=== PATIENT | male | born 1965 | race Caucasian/White ===

== ENCOUNTER 2017-11-26 06:27 | Inpatient (IN) | payer OTHER ==
[2017-11-26] MEDS: ACETAMINOPHEN 325 MG TAB PO (06:55)
[2017-11-26] MEDS ORDERED: LEVOFLOXACIN 750MG/D5W (PMX) 150 ML IVPB (07:00)
[2017-11-26] MEDS ORDERED: NACL 0.9% 3 ML SYG IV (07:00)
[2017-11-26] MEDS: INSULIN ASPART [NOVOLOG] 3 ML PEN SC ×4 (07:55→21:00)
[2017-11-26 08:29] LABS: WHITE BLOOD COUNT 15.8 10^3/ul (4.8-10.8)
[2017-11-26 08:29] LABS: HEMATOCRIT 35.6 % (42.0-52.0); HEMOGLOBIN 11.9 g/dl (14.0-18.0); MEAN CORPUSCULAR HEMOGLOBIN 30.3 pg (29.0-33.0); MEAN CORPUSCULAR HGB CONC 33.4 g/dl (32.0-37.0); MEAN CORPUSCULAR VOLUME 90.6 fl (82.0-101.0); MEAN PLATELET VOLUME 8.9 fl (7.4-10.4); PLATELET COUNT 228 10^3/UL (140-415); POSITIVE DIFF @See below; RED BLOOD COUNT 3.93 10^6/ul (4.70-6.10); RED CELL DISTRIBUTION WIDTH 13.9 % (11.5-14.5)
[2017-11-26 08:51] LABS: ADD MAN DIFF? YES
[2017-11-26 08:52] LABS: ALANINE AMINOTRANSFERASE 31 IU/L (13-69); ALBUMIN 3.5 g/dl (3.3-4.9); ALBUMIN/GLOBULIN RATIO 1.06; ALKALINE PHOSPHATASE 90 IU/L (42-121); ANION GAP 14 (8-16); ASPARTATE AMINO TRANSFERASE 23 IU/L (15-46); BILIRUBIN,INDIRECT 0.4 mg/dl (0-1.1); BILIRUBIN,TOTAL 0.4 mg/dl (0.2-1.3); BLOOD UREA NITROGEN 33 mg/dl (7-20); CALCIUM 8.9 mg/dl (8.4-10.2); CARBON DIOXIDE 24 mmol/L (21-31); CHLORIDE 105 mmol/L (97-110); CHOL/HDL RATIO 2.2 RATIO; CHOLESTEROL 103 mg/dl (100-200); GLUCOSE 156 mg/dl (70-220); HDL CHOLESTEROL 46 mg/dl (28-71); LDL CHOLESTEROL,CALCULATED 38 mg/dl; MAGNESIUM 1.3 mg/dl (1.7-2.5); POTASSIUM 4.4 mmol/L (3.5-5.1); SODIUM 139 mmol/L (135-144); TOTAL PROTEIN 6.8 g/dl (6.1-8.1); TRIGLYCERIDES 93 mg/dl (0-149)
[2017-11-26 09:02] LABS: LACTIC ACID 2.5 mmol/L (0.5-2.0)
[2017-11-26] MEDS: PANTOPRAZOLE (EC) 40 MG TAB PO (09:15)
[2017-11-26] MEDS: ASPIRIN (EC) 81 MG TAB PO (09:15)
[2017-11-26] MEDS: LEVOFLOXACIN 750MG/D5W (PMX) 150 ML IVPB (09:15)
[2017-11-26] MEDS: SOD CHLORIDE 0.9% 1,000 ML IV ×3 (09:15→23:02)
[2017-11-26 09:20] LABS: THYROID STIMULATING HORMONE 0.837 MIU/L (0.465-4.680)
[2017-11-26 09:26] LABS: ANISOCYTOSIS 1+ (0-0); BAND NEUTROPHILS % (M) 19 % (0-4); LYMPHOCYTES #M 1.1 10^3/ul (0.8-2.9); LYMPHOCYTES % (M) 7 % (15-51); MICROCYTOSIS 1+ (0-0); MONOCYTE #M 0.1 10^3/ul (0.3-0.9); MONOCYTES % (M) 1 % (0-11); PLATELET ESTIMATE NORMAL; SEGMENTED NEUTROPHILS (M) % 73 % (39-77)
[2017-11-26 09:35] LABS: HEMOGLOBIN A1C 7.5 % (0-5.9)
[2017-11-26 10:25] LABS: LACTIC ACID 1.4 mmol/L (0.5-2.0)
[2017-11-26] MEDS ORDERED: GLUCAGON 1 MG INJ IM (12:00)
[2017-11-26] MEDS ORDERED: GLUCOSE GEL 15 GRAM TUBE BUCCAL (12:00)
[2017-11-26] MEDS ORDERED: DEXTROSE 50% 50 ML SYRINGE IV (12:00)
[2017-11-26] MEDS ORDERED: GLUCOSE GEL 15 GRAM TUBE PO ×2 (12:00)
[2017-11-26] MEDS: PIPER-TAZO 2.25 GM (PMX) 50 ML IVPB ×3 (12:10→23:02)
[2017-11-26] MEDS: GEMFIBROZIL 600 MG TAB PO ×2 (12:10→20:50)
[2017-11-26 12:46] LABS: ADD UMIC YES; UR ASCORBIC ACID NEGATIVE (NEGATIVE); UR BACTERIA FEW /HPF (NONE SEEN); UR BILIRUBIN (Dip) NEGATIVE (NEGATIVE); UR BLOOD (Dip) 2+ mg/dL (NEGATIVE); UR CLARITY CLOUDY (CLEAR); UR COLOR YELLOW (YELLOW); UR GLUCOSE (Dip) NEGATIVE (NEGATIVE); UR KETONES (Dip) NEGATIVE (NEGATIVE); UR LEUKOCYTE ESTERASE (Dip) 3+ Leu/ul (NEGATIVE); UR NITRITE (Dip) NEGATIVE (NEGATIVE); UR NONSQUAMOUS EPITHELIAL CELL 1 /HPF (NONE SEEN); UR RBC 55 /HPF (0-5); UR SPECIFIC GRAVITY (Dip) 1.018 (1.003-1.030); UR TOTAL PROTEIN (Dip) 3+ mg/dl (NEGATIVE); UR UROBILINOGEN (Dip) NEGATIVE (NEGATIVE); UR WBC > 182 /HPF (0-5)
[2017-11-26] MEDS: LINAGLIPTIN 5 MG TABLET PO (12:59)
[2017-11-26] MEDS: HYDROCODONE/APAP (5/325) TAB PO (14:18)
[2017-11-26] MEDS ORDERED: POLYETHYLENE GLYCOL 17 GM PACKET PO (17:30)
[2017-11-26] MEDS ORDERED: DOCUSATE SODIUM 100 MG CAP PO (17:30)
[2017-11-26] MEDS: ONDANSETRON 4 MG INJ IV (18:02)
[2017-11-26] MEDS: POLYETHYLENE GLYCOL 17 GM PACKET PO (18:02)
[2017-11-26] MEDS: DOCUSATE SODIUM 100 MG CAP PO ×2 (18:02→20:50)
[2017-11-26] MEDS: METOPROLOL 25 MG TAB PO (20:50)
[2017-11-26] MEDS: ATORVASTATIN 10 MG TAB PO (20:51)
[2017-11-26] MEDS: INSULIN GLARGINE [LANtus] 3 ML PEN SC (21:09)
[2017-11-26 23:44] LABS: ADD UMIC YES; UR ASCORBIC ACID NEGATIVE (NEGATIVE); UR BILIRUBIN (Dip) NEGATIVE (NEGATIVE); UR BLOOD (Dip) 2+ mg/dL (NEGATIVE); UR CLARITY SLIGHTLY CLOUDY (CLEAR); UR COLOR YELLOW (YELLOW); UR GLUCOSE (Dip) NEGATIVE (NEGATIVE); UR KETONES (Dip) NEGATIVE (NEGATIVE); UR LEUKOCYTE ESTERASE (Dip) TRACE Leu/ul (NEGATIVE); UR MUCUS FEW /HPF (NONE SEEN); UR NITRITE (Dip) NEGATIVE (NEGATIVE); UR RBC 52 /HPF (0-5); UR SPECIFIC GRAVITY (Dip) 1.019 (1.003-1.030); UR SQUAMOUS EPITHELIAL CELL FEW /HPF (FEW); UR TOTAL PROTEIN (Dip) 3+ mg/dl (NEGATIVE); UR UROBILINOGEN (Dip) 1+ mg/dL (NEGATIVE); UR WBC 21 /HPF (0-5)
[2017-11-27] MEDS: HYDROCODONE/APAP (5/325) TAB PO (01:33)
[2017-11-27] MEDS: ACCU-CHEK XX (02:00)
[2017-11-27] MEDS: PIPER-TAZO 2.25 GM (PMX) 50 ML IVPB ×3 (05:06→21:20)
[2017-11-27] MEDS: PANTOPRAZOLE (EC) 40 MG TAB PO (05:07)
[2017-11-27] MEDS: morphine 2 MG INJ IV ×3 (05:14→22:44)
[2017-11-27] MEDS: SOD CHLORIDE 0.9% 1,000 ML IV ×3 (07:11→23:11)
[2017-11-27] MEDS: ONDANSETRON 4 MG INJ IV ×3 (08:17→19:58)
[2017-11-27] MEDS: LINAGLIPTIN 5 MG TABLET PO (08:17)
[2017-11-27] MEDS: ASPIRIN (EC) 81 MG TAB PO (08:17)
[2017-11-27] MEDS: GEMFIBROZIL 600 MG TAB PO ×2 (08:17→21:21)
[2017-11-27] MEDS: METOPROLOL 25 MG TAB PO ×2 (08:17→21:21)
[2017-11-27] MEDS: DOCUSATE SODIUM 100 MG CAP PO ×2 (08:17→21:21)
[2017-11-27] MEDS: POLYETHYLENE GLYCOL 17 GM PACKET PO (08:19)
[2017-11-27 08:45] LABS: ADD MAN DIFF? NO
[2017-11-27 08:47] LABS: WHITE BLOOD COUNT 17.5 10^3/ul (4.8-10.8)
[2017-11-27 08:47] LABS: ABNORMAL IP MESSAGE 1; BASOPHIL # 0.1 10^3/ul (0.0-0.1); BASOPHILS % 0.3 % (0.0-2.0); EOSINOPHILS # 0.1 10^3/ul (0.0-0.5); EOSINOPHILS % 0.6 % (0.0-7.0); HEMATOCRIT 31.8 % (42.0-52.0); HEMOGLOBIN 10.6 g/dl (14.0-18.0); LYMPHOCYTES # 1.1 10^3/ul (0.8-2.9); MEAN CORPUSCULAR HEMOGLOBIN 30.3 pg (29.0-33.0); MEAN CORPUSCULAR HGB CONC 33.3 g/dl (32.0-37.0); MEAN CORPUSCULAR VOLUME 90.9 fl (82.0-101.0); MEAN PLATELET VOLUME 9.5 fl (7.4-10.4); MONOCYTE # 0.9 10^3/ul (0.3-0.9); MONOCYTES % 5.1 % (0.0-11.0); NEUTROPHIL # 14.2 10^3/ul (1.6-7.5); NEUTROPHILS % 81.2 % (39.0-77.0); PLATELET COUNT 222 10^3/UL (140-415); POSITIVE DIFF @See below; RED CELL DISTRIBUTION WIDTH 13.8 % (11.5-14.5)
[2017-11-27] MEDS: INSULIN ASPART [NOVOLOG] 3 ML PEN SC ×4 (08:56→21:00)
[2017-11-27 09:13] LABS: ANION GAP 14 (8-16); BLOOD UREA NITROGEN 32 mg/dl (7-20); CALCIUM 8.2 mg/dl (8.4-10.2); CARBON DIOXIDE 24 mmol/L (21-31); CHLORIDE 105 mmol/L (97-110); CREATININE 1.47 mg/dl (0.61-1.24); GLUCOSE 139 mg/dl (70-220); MAGNESIUM 1.6 mg/dl (1.7-2.5); POTASSIUM 4.6 mmol/L (3.5-5.1); SODIUM 138 mmol/L (135-144)
[2017-11-27 09:19] LABS: INR 1.26; PT RATIO 1.3
[2017-11-27 09:20] LABS: PARTIAL THROMBOPLASTIN TIME 46.4 Sec (25.0-35.0)
[2017-11-27] MEDS: BISACODYL (EC) 5 MG TAB PO (15:26)
[2017-11-27] MEDS: MAGNESIUM SULFATE 2 GM/50 ML 50 ML IVPB (15:47)
[2017-11-27] MEDS: TAMSULOSIN (SR) 0.4 MG CAP PO (21:20)
[2017-11-27] MEDS: ATORVASTATIN 10 MG TAB PO (21:21)
[2017-11-27] MEDS: INSULIN GLARGINE [LANtus] 3 ML PEN SC (21:25)
[2017-11-28] MEDS: ACCU-CHEK XX (02:00)
[2017-11-28] MEDS: morphine 2 MG INJ IV ×3 (05:00→19:16)
[2017-11-28] MEDS: PIPER-TAZO 2.25 GM (PMX) 50 ML IVPB ×3 (05:00→21:04)
[2017-11-28] MEDS: PANTOPRAZOLE (EC) 40 MG TAB PO (05:00)
[2017-11-28 07:05] LABS: ADD MAN DIFF? NO
[2017-11-28 07:11] LABS: WHITE BLOOD COUNT 10.9 10^3/ul (4.8-10.8)
[2017-11-28 07:11] LABS: BASOPHILS % 0.4 % (0.0-2.0); EOSINOPHILS # 0.1 10^3/ul (0.0-0.5); EOSINOPHILS % 1.3 % (0.0-7.0); HEMOGLOBIN 9.7 g/dl (14.0-18.0); LYMPHOCYTES # 0.7 10^3/ul (0.8-2.9); LYMPHOCYTES % 6.3 % (15.0-51.0); MEAN CORPUSCULAR HEMOGLOBIN 30.3 pg (29.0-33.0); MEAN CORPUSCULAR HGB CONC 33.4 g/dl (32.0-37.0); MEAN CORPUSCULAR VOLUME 90.6 fl (82.0-101.0); MEAN PLATELET VOLUME 9.3 fl (7.4-10.4); MONOCYTE # 0.6 10^3/ul (0.3-0.9); MONOCYTES % 5.1 % (0.0-11.0); NEUTROPHIL # 9.4 10^3/ul (1.6-7.5); NEUTROPHILS % 86.3 % (39.0-77.0); PLATELET COUNT 217 10^3/UL (140-415)
[2017-11-28] MEDS: SOD CHLORIDE 0.9% 1,000 ML IV ×3 (07:11→21:04)
[2017-11-28 07:31] LABS: ANION GAP 14 (8-16); BLOOD UREA NITROGEN 25 mg/dl (7-20); CARBON DIOXIDE 23 mmol/L (21-31); CHLORIDE 104 mmol/L (97-110); CREATININE 1.48 mg/dl (0.61-1.24); GLUCOSE 146 mg/dl (70-220); POTASSIUM 4.2 mmol/L (3.5-5.1); SODIUM 137 mmol/L (135-144)
[2017-11-28] MEDS: INSULIN ASPART [NOVOLOG] 3 ML PEN SC ×5 (07:39→20:52)
[2017-11-28] MEDS: LINAGLIPTIN 5 MG TABLET PO (08:12)
[2017-11-28] MEDS: DOCUSATE SODIUM 100 MG CAP PO ×2 (08:12→20:49)
[2017-11-28] MEDS: GEMFIBROZIL 600 MG TAB PO ×2 (08:12→20:50)
[2017-11-28] MEDS: ASPIRIN (EC) 81 MG TAB PO (08:12)
[2017-11-28] MEDS: POLYETHYLENE GLYCOL 17 GM PACKET PO (08:12)
[2017-11-28] MEDS: METOPROLOL 25 MG TAB PO ×2 (08:16→20:51)
[2017-11-28 17:16] LABS: PSA, FREE >17.0 ng/mL
[2017-11-28] MEDS: ATORVASTATIN 10 MG TAB PO (20:49)
[2017-11-28] MEDS: TAMSULOSIN (SR) 0.4 MG CAP PO (20:49)
[2017-11-28] MEDS: INSULIN GLARGINE [LANtus] 3 ML PEN SC (21:00)
[2017-11-29] MEDS: ACCU-CHEK XX (02:00)
[2017-11-29] MEDS: morphine 2 MG INJ IV ×3 (02:13→18:38)
[2017-11-29] MEDS: PIPER-TAZO 2.25 GM (PMX) 50 ML IVPB ×3 (05:26→23:47)
[2017-11-29] MEDS: SOD CHLORIDE 0.9% 1,000 ML IV ×2 (05:29→17:27)
[2017-11-29] MEDS: PANTOPRAZOLE (EC) 40 MG TAB PO (05:29)
[2017-11-29 05:52] LABS: ADD MAN DIFF? NO
[2017-11-29 06:01] LABS: WHITE BLOOD COUNT 7.5 10^3/ul (4.8-10.8)
[2017-11-29 06:01] LABS: BASOPHILS % 0.3 % (0.0-2.0); EOSINOPHILS # 0.1 10^3/ul (0.0-0.5); EOSINOPHILS % 1.2 % (0.0-7.0); HEMATOCRIT 29.5 % (42.0-52.0); HEMOGLOBIN 10.2 g/dl (14.0-18.0); LYMPHOCYTES # 0.8 10^3/ul (0.8-2.9); LYMPHOCYTES % 10.1 % (15.0-51.0); MEAN CORPUSCULAR HEMOGLOBIN 30.4 pg (29.0-33.0); MEAN CORPUSCULAR HGB CONC 34.6 g/dl (32.0-37.0); MEAN CORPUSCULAR VOLUME 88.1 fl (82.0-101.0); MEAN PLATELET VOLUME 9.2 fl (7.4-10.4); MONOCYTE # 0.8 10^3/ul (0.3-0.9); MONOCYTES % 10.7 % (0.0-11.0); NEUTROPHIL # 5.8 10^3/ul (1.6-7.5); PLATELET COUNT 232 10^3/UL (140-415); RED BLOOD COUNT 3.35 10^6/ul (4.70-6.10); RED CELL DISTRIBUTION WIDTH 13.8 % (11.5-14.5)
[2017-11-29 06:18] LABS: ANION GAP 12 (8-16); BLOOD UREA NITROGEN 18 mg/dl (7-20); CALCIUM 8.1 mg/dl (8.4-10.2); CARBON DIOXIDE 23 mmol/L (21-31); CHLORIDE 108 mmol/L (97-110); CREATININE 1.31 mg/dl (0.61-1.24); POTASSIUM 3.4 mmol/L (3.5-5.1); SODIUM 140 mmol/L (135-144)
[2017-11-29 06:33] LABS: GLUCOSE 43 mg/dl (70-220)
[2017-11-29] MEDS: INSULIN ASPART [NOVOLOG] 3 ML PEN SC ×4 (08:15→20:49)
[2017-11-29] MEDS: ASPIRIN (EC) 81 MG TAB PO (09:29)
[2017-11-29] MEDS: DOCUSATE SODIUM 100 MG CAP PO (09:29)
[2017-11-29] MEDS: POLYETHYLENE GLYCOL 17 GM PACKET PO ×2 (09:29→09:32)
[2017-11-29] MEDS: LINAGLIPTIN 5 MG TABLET PO (09:29)
[2017-11-29] MEDS: GEMFIBROZIL 600 MG TAB PO ×2 (09:29→20:45)
[2017-11-29] MEDS: METOPROLOL 25 MG TAB PO ×2 (09:30→20:49)
[2017-11-29] MEDS ORDERED: POLYETHYLENE GLYCOL 17 GM PACKET PO (10:30)
[2017-11-29 11:19] LABS: IRON 18 ug/dl (35-150)
[2017-11-29 11:29] LABS: % IRON SATURATION 8 % SAT (22-52); TOTAL IRON BINDING CAPACITY 227 ug/dl (241-421)
[2017-11-29 11:52] LABS: HEPATITIS B SURFACE ANTIGEN NEGATIVE (NEGATIVE)
[2017-11-29 12:09] LABS: HEPATITIS C VIRAL ANTIBODY NEGATIVE (NEGATIVE)
[2017-11-29] MEDS: SOD FERRIC GLUC COMPLX 125 MG in SOD CHLORIDE 0.9% 100 ML IVPB (18:45)
[2017-11-29] MEDS: TAMSULOSIN (SR) 0.4 MG CAP PO (20:46)
[2017-11-29] MEDS: ATORVASTATIN 10 MG TAB PO (20:47)
[2017-11-29] MEDS: INSULIN GLARGINE [LANtus] 3 ML PEN SC (20:53)
[2017-11-29] MEDS ORDERED: DOCUSATE SODIUM 100 MG CAP PO (21:00)
[2017-11-30] MEDS: morphine 2 MG INJ IV ×4 (00:16→20:11)
[2017-11-30] MEDS: ACCU-CHEK XX (02:00)
[2017-11-30] MEDS: SOD CHLORIDE 0.9% 1,000 ML IV ×5 (03:47→23:18)
[2017-11-30] MEDS: PIPER-TAZO 2.25 GM (PMX) 50 ML IVPB (05:33)
[2017-11-30] MEDS: PANTOPRAZOLE (EC) 40 MG TAB PO (05:33)
[2017-11-30 06:14] LABS: ADD MAN DIFF? NO
[2017-11-30 06:18] LABS: BASOPHILS % 0.5 % (0.0-2.0); EOSINOPHILS # 0.2 10^3/ul (0.0-0.5); EOSINOPHILS % 3.5 % (0.0-7.0); HEMATOCRIT 29.3 % (42.0-52.0); LYMPHOCYTES # 1.3 10^3/ul (0.8-2.9); LYMPHOCYTES % 22.1 % (15.0-51.0); MEAN CORPUSCULAR HEMOGLOBIN 30.1 pg (29.0-33.0); MEAN CORPUSCULAR HGB CONC 34.1 g/dl (32.0-37.0); MEAN CORPUSCULAR VOLUME 88.3 fl (82.0-101.0); MEAN PLATELET VOLUME 9.4 fl (7.4-10.4); MONOCYTE # 0.9 10^3/ul (0.3-0.9); MONOCYTES % 14.9 % (0.0-11.0); NEUTROPHIL # 3.4 10^3/ul (1.6-7.5); NEUTROPHILS % 57.7 % (39.0-77.0); PLATELET COUNT 239 10^3/UL (140-415); RED BLOOD COUNT 3.32 10^6/ul (4.70-6.10); RED CELL DISTRIBUTION WIDTH 14.1 % (11.5-14.5)
[2017-11-30 06:45] LABS: ALANINE AMINOTRANSFERASE 30 IU/L (13-69); ALBUMIN/GLOBULIN RATIO 0.93; ALKALINE PHOSPHATASE 85 IU/L (42-121); ANION GAP 12 (8-16); ASPARTATE AMINO TRANSFERASE 22 IU/L (15-46); BILIRUBIN,INDIRECT 0.1 mg/dl (0-1.1); BILIRUBIN,TOTAL 0.1 mg/dl (0.2-1.3); BLOOD UREA NITROGEN 13 mg/dl (7-20); CALCIUM 8.4 mg/dl (8.4-10.2); CARBON DIOXIDE 25 mmol/L (21-31); CHLORIDE 107 mmol/L (97-110); CREATININE 1.25 mg/dl (0.61-1.24); GLUCOSE 93 mg/dl (70-220); POTASSIUM 3.8 mmol/L (3.5-5.1); SODIUM 140 mmol/L (135-144); TOTAL PROTEIN 6.2 g/dl (6.1-8.1)
[2017-11-30 08:04] LABS: ADD UMIC YES; UR ASCORBIC ACID NEGATIVE (NEGATIVE); UR BILIRUBIN (Dip) NEGATIVE (NEGATIVE); UR BLOOD (Dip) 2+ mg/dL (NEGATIVE); UR CLARITY CLEAR (CLEAR); UR COLOR STRAW (YELLOW); UR GLUCOSE (Dip) NEGATIVE (NEGATIVE); UR KETONES (Dip) NEGATIVE (NEGATIVE); UR LEUKOCYTE ESTERASE (Dip) NEGATIVE Leu/ul (NEGATIVE); UR NITRITE (Dip) NEGATIVE (NEGATIVE); UR RBC 2 /HPF (0-5); UR SPECIFIC GRAVITY (Dip) 1.006 (1.003-1.030); UR TOTAL PROTEIN (Dip) 2+ mg/dl (NEGATIVE); UR UROBILINOGEN (Dip) NEGATIVE (NEGATIVE); UR WBC 1 /HPF (0-5)
[2017-11-30] MEDS: INSULIN ASPART [NOVOLOG] 3 ML PEN SC ×4 (08:15→20:18)
[2017-11-30] MEDS: GEMFIBROZIL 600 MG TAB PO ×2 (09:39→20:09)
[2017-11-30] MEDS: LINAGLIPTIN 5 MG TABLET PO (09:39)
[2017-11-30] MEDS: ASPIRIN (EC) 81 MG TAB PO (09:39)
[2017-11-30] MEDS: METOPROLOL 25 MG TAB PO ×2 (09:40→20:10)
[2017-11-30] MEDS: CEFOTAXIME 2 GM/50 ML (PMX) 50 ML IVPB ×2 (13:33→23:18)
[2017-11-30] MEDS: FINASTERIDE 5 MG TAB PO (17:42)
[2017-11-30] MEDS: ATORVASTATIN 10 MG TAB PO (20:09)
[2017-11-30] MEDS: TRIMETHOPRIM/SULFAMETHOX (DS) TAB PO (20:09)
[2017-11-30] MEDS: TAMSULOSIN (SR) 0.4 MG CAP PO (20:09)
[2017-11-30] MEDS: INSULIN GLARGINE [LANtus] 3 ML PEN SC (20:17)
[2017-12-01] MEDS: ACCU-CHEK XX (02:00)
[2017-12-01] MEDS: morphine 2 MG INJ IV (02:21)
[2017-12-01] MEDS: CEFOTAXIME 2 GM/50 ML (PMX) 50 ML IVPB ×3 (05:36→21:12)
[2017-12-01] MEDS: PANTOPRAZOLE (EC) 40 MG TAB PO (05:37)
[2017-12-01 06:57] LABS: ANION GAP 11 (8-16); BLOOD UREA NITROGEN 11 mg/dl (7-20); CALCIUM 8.6 mg/dl (8.4-10.2); CARBON DIOXIDE 25 mmol/L (21-31); CHLORIDE 108 mmol/L (97-110); CREATININE 1.07 mg/dl (0.61-1.24); GLUCOSE 75 mg/dl (70-220); POTASSIUM 3.7 mmol/L (3.5-5.1); SODIUM 140 mmol/L (135-144)
[2017-12-01] MEDS: SOD CHLORIDE 0.9% 1,000 ML IV ×4 (07:11→17:37)
[2017-12-01] MEDS: INSULIN ASPART [NOVOLOG] 3 ML PEN SC ×4 (08:14→21:06)
[2017-12-01] MEDS: GEMFIBROZIL 600 MG TAB PO ×2 (08:15→21:03)
[2017-12-01] MEDS: TRIMETHOPRIM/SULFAMETHOX (DS) TAB PO ×2 (08:15→21:03)
[2017-12-01] MEDS: METOPROLOL 25 MG TAB PO ×2 (08:17→20:02)
[2017-12-01] MEDS: FINASTERIDE 5 MG TAB PO (08:17)
[2017-12-01] MEDS: ASPIRIN (EC) 81 MG TAB PO (08:17)
[2017-12-01] MEDS: DEXTROSE 50% 50 ML SYRINGE IV (08:35)
[2017-12-01] MEDS: LINAGLIPTIN 5 MG TABLET PO (09:09)
[2017-12-01] MEDS: HYDROCODONE/APAP (5/325) TAB PO ×2 (10:39→20:02)
[2017-12-01] MEDS: hydrALAzine 20 MG INJ IV (15:07)
[2017-12-01] MEDS: ACETAMINOPHEN 325 MG TAB PO (18:42)
[2017-12-01] MEDS: TAMSULOSIN (SR) 0.4 MG CAP PO (21:04)
[2017-12-01] MEDS: ATORVASTATIN 10 MG TAB PO (21:04)
[2017-12-01] MEDS: INSULIN GLARGINE [LANtus] 3 ML PEN SC (21:07)
[2017-12-02] MEDS: hydrALAzine 20 MG INJ IV (01:03)
[2017-12-02] MEDS: SOD CHLORIDE 0.9% 1,000 ML IV ×2 (01:05→05:56)
[2017-12-02] MEDS: ACCU-CHEK XX (02:00)
[2017-12-02] MEDS: HYDROCODONE/APAP (5/325) TAB PO (04:38)
[2017-12-02 05:49] LABS: ADD MAN DIFF? NO
[2017-12-02] MEDS: CEFOTAXIME 2 GM/50 ML (PMX) 50 ML IVPB (05:55)
[2017-12-02] MEDS: PANTOPRAZOLE (EC) 40 MG TAB PO (05:55)
[2017-12-02 06:08] LABS: WHITE BLOOD COUNT 6.9 10^3/ul (4.8-10.8)
[2017-12-02 06:08] LABS: BASOPHIL # 0.1 10^3/ul (0.0-0.1); BASOPHILS % 0.7 % (0.0-2.0); EOSINOPHILS # 0.2 10^3/ul (0.0-0.5); EOSINOPHILS % 3.3 % (0.0-7.0); HEMATOCRIT 29.2 % (42.0-52.0); HEMOGLOBIN 10.1 g/dl (14.0-18.0); LYMPHOCYTES # 1.5 10^3/ul (0.8-2.9); LYMPHOCYTES % 21.5 % (15.0-51.0); MEAN CORPUSCULAR HEMOGLOBIN 30.3 pg (29.0-33.0); MEAN CORPUSCULAR HGB CONC 34.6 g/dl (32.0-37.0); MEAN CORPUSCULAR VOLUME 87.7 fl (82.0-101.0); MONOCYTE # 0.5 10^3/ul (0.3-0.9); MONOCYTES % 7.6 % (0.0-11.0); NEUTROPHIL # 4.5 10^3/ul (1.6-7.5); NEUTROPHILS % 64.6 % (39.0-77.0); PLATELET COUNT 313 10^3/UL (140-415); POSITIVE DIFF @See below; RED BLOOD COUNT 3.33 10^6/ul (4.70-6.10); RED CELL DISTRIBUTION WIDTH 14.1 % (11.5-14.5)
[2017-12-02 06:55] LABS: ANION GAP 14 (8-16); BLOOD UREA NITROGEN 9 mg/dl (7-20); CALCIUM 8.1 mg/dl (8.4-10.2); CARBON DIOXIDE 24 mmol/L (21-31); CHLORIDE 106 mmol/L (97-110); CREATININE 1.19 mg/dl (0.61-1.24); GLUCOSE 168 mg/dl (70-220); POTASSIUM 3.6 mmol/L (3.5-5.1); SODIUM 140 mmol/L (135-144)
[2017-12-02] MEDS: INSULIN ASPART [NOVOLOG] 3 ML PEN SC ×2 (08:18→12:02)
[2017-12-02] MEDS: morphine 2 MG INJ IV (08:43)
[2017-12-02] MEDS: GEMFIBROZIL 600 MG TAB PO (09:26)
[2017-12-02] MEDS: METOPROLOL 25 MG TAB PO (09:27)
[2017-12-02] MEDS: FINASTERIDE 5 MG TAB PO (09:27)
[2017-12-02] MEDS: TRIMETHOPRIM/SULFAMETHOX (DS) TAB PO (09:28)
[2017-12-02] MEDS: ASPIRIN (EC) 81 MG TAB PO (09:28)
== END 2017-12-02 14:35 | disposition home or self-care (01) | DRG 872 ==
LOC: TEL 06:27 → MS2 11-28 12:00
DX: A41.51 Sepsis due to Escherichia coli [E. coli] (principal); N17.9 Acute kidney failure, unspecified; E11.22 Type 2 diabetes mellitus with diabetic chronic kidney disease; E11.42 Type 2 diabetes mellitus with diabetic polyneuropathy; N10 Acute pyelonephritis; E83.42 Hypomagnesemia; E66.01 Morbid (severe) obesity due to excess calories; R65.20 Severe sepsis without septic shock; N40.0 Benign prostatic hyperplasia without lower urinary tract symptoms; E78.5 Hyperlipidemia, unspecified; I12.9 Hypertensive chronic kidney disease with stage 1 through stage 4 chronic kidney disease, or unspecified chronic kidney disease; N18.9 Chronic kidney disease, unspecified; D50.9 Iron deficiency anemia, unspecified; E11.649 Type 2 diabetes mellitus with hypoglycemia without coma; Z68.31 Body mass index [BMI] 31.0-31.9, adult; Z79.4 Long term (current) use of insulin
CPT/HCPCS: 76775; 76856; 80048; 80053; 80061; 81001; 82728; 82962; 83036; 83540; 83605; 83735; 84153; 84154; 84443; 85025; 85610; 85730; 86803; 87040; 87086; 87340; 88104; 97116; 97162

== ENCOUNTER 2017-12-05 14:28 | Outpatient (CLI) | payer OTHER | END 2017-12-05 15:59 | disposition home or self-care (01) | LOC: DCC 14:28 | DX: N12 Tubulo-interstitial nephritis, not specified as acute or chronic (principal); E11.9 Type 2 diabetes mellitus without complications; E78.5 Hyperlipidemia, unspecified; I10 Essential (primary) hypertension; N40.0 Benign prostatic hyperplasia without lower urinary tract symptoms; R06.02 Shortness of breath | CPT/HCPCS: G0463 ==

== ENCOUNTER 2017-12-19 14:41 | Outpatient (CLI) | payer OTHER | END 2017-12-19 17:00 | disposition home or self-care (01) | LOC: DCC 14:41 | DX: R06.02 Shortness of breath (principal); N12 Tubulo-interstitial nephritis, not specified as acute or chronic; E11.9 Type 2 diabetes mellitus without complications; E78.5 Hyperlipidemia, unspecified; I10 Essential (primary) hypertension; N40.0 Benign prostatic hyperplasia without lower urinary tract symptoms; Z79.4 Long term (current) use of insulin; Z79.84 Long term (current) use of oral hypoglycemic drugs | CPT/HCPCS: G0463 ==

== ENCOUNTER 2018-03-25 12:11 | Emergency (ER) | payer OTHER ==
[2018-03-25] MEDS: traMADol 50 MG TAB PO (12:42)
== END 2018-03-25 13:48 | disposition home or self-care (01) ==
LOC: FTE 12:11
DX: L03.115 Cellulitis of right lower limb (principal); I10 Essential (primary) hypertension; E11.9 Type 2 diabetes mellitus without complications; Z79.82 Long term (current) use of aspirin; Z79.4 Long term (current) use of insulin
CPT/HCPCS: 93971; 99284-25

== ENCOUNTER 2018-04-11 07:17 | Inpatient (IN) | payer OTHER ==
[2018-04-11] MEDS ORDERED: VANCOMYCIN IV PER PHARMACY XX (11:00)
[2018-04-11] MEDS ORDERED: ACETAMINOPHEN 325 MG TAB PO (11:00)
[2018-04-11] MEDS ORDERED: ZOLPIDEM 5 MG TAB PO (11:00)
[2018-04-11] MEDS ORDERED: NACL 0.9% 3 ML SYG IV (11:00)
[2018-04-11] MEDS ORDERED: morphine 2 MG INJ IV (11:00)
[2018-04-11] MEDS: INSULIN ASPART [NOVOLOG] 3 ML PEN SC ×5 (11:45→22:00)
[2018-04-11] MEDS: VANCOMYCIN 2 GM in SOD CHLORIDE 0.9% 500 ML IVPB (12:27)
[2018-04-11] MEDS: PANTOPRAZOLE (EC) 40 MG TAB PO (12:27)
[2018-04-11] MEDS: DOCUSATE SODIUM 100 MG CAP PO (12:28)
[2018-04-11] MEDS: GEMFIBROZIL 600 MG TAB PO ×2 (12:28→20:15)
[2018-04-11] MEDS: METOPROLOL 25 MG TAB PO ×2 (12:28→20:16)
[2018-04-11] MEDS: ASPIRIN (EC) 81 MG TAB PO (12:28)
[2018-04-11] MEDS: IBUPROFEN 600 MG TAB PO (12:29)
[2018-04-11] MEDS: FINASTERIDE 5 MG TAB PO (12:29)
[2018-04-11] MEDS: LOSARTAN 50 MG TAB PO (12:29)
[2018-04-11] MEDS: FERROUS SULFATE (EC) 325 MG TAB PO ×2 (12:30→20:16)
[2018-04-11] MEDS: ENOXAPARIN 40 MG/0.4 ML SYG SC (12:40)
[2018-04-11] MEDS: HYDROCODONE/APAP (5/325) TAB PO ×2 (15:39→22:00)
[2018-04-11] MEDS: TAMSULOSIN (SR) 0.4 MG CAP PO (20:15)
[2018-04-11] MEDS: ATORVASTATIN 10 MG TAB PO (20:20)
[2018-04-11] MEDS: INSULIN GLARGINE [LANtus] 3 ML PEN SC (23:35)
[2018-04-12] MEDS: ACCU-CHEK XX (02:00)
[2018-04-12] MEDS: PANTOPRAZOLE (EC) 40 MG TAB PO (05:27)
[2018-04-12 06:18] LABS: ADD MAN DIFF? NO
[2018-04-12 06:23] LABS: BASOPHIL # 0.1 10^3/ul (0.0-0.1); BASOPHILS % 0.8 % (0.0-2.0); EOSINOPHILS # 0.3 10^3/ul (0.0-0.5); EOSINOPHILS % 5.1 % (0.0-7.0); HEMATOCRIT 32.3 % (42.0-52.0); HEMOGLOBIN 10.4 g/dl (14.0-18.0); LYMPHOCYTES % 32.3 % (15.0-51.0); MEAN CORPUSCULAR HGB CONC 32.2 g/dl (32.0-37.0); MEAN PLATELET VOLUME 9.1 fl (7.4-10.4); MONOCYTE # 0.5 10^3/ul (0.3-0.9); MONOCYTES % 7.9 % (0.0-11.0); NEUTROPHIL # 3.2 10^3/ul (1.6-7.5); NEUTROPHILS % 53.6 % (39.0-77.0); PLATELET COUNT 329 10^3/UL (140-415); RED BLOOD COUNT 3.59 10^6/ul (4.70-6.10); RED CELL DISTRIBUTION WIDTH 12.9 % (11.5-14.5)
[2018-04-12] MEDS: HYDROCODONE/APAP (5/325) TAB PO (06:47)
[2018-04-12 07:24] LABS: ANION GAP 12 (8-16); BLOOD UREA NITROGEN 31 mg/dl (7-20); CALCIUM 9.1 mg/dl (8.4-10.2); CARBON DIOXIDE 30 mmol/L (21-31); CHLORIDE 108 mmol/L (97-110); GLUCOSE 158 mg/dl (70-220); PHOSPHORUS 4.4 mg/dl (2.5-4.9); POTASSIUM 5.1 mmol/L (3.5-5.1); SODIUM 145 mmol/L (135-144)
[2018-04-12] MEDS: ASPIRIN (EC) 81 MG TAB PO (08:27)
[2018-04-12] MEDS: GEMFIBROZIL 600 MG TAB PO ×2 (08:28→20:24)
[2018-04-12] MEDS: METOPROLOL 25 MG TAB PO ×2 (08:28→20:25)
[2018-04-12] MEDS: LOSARTAN 50 MG TAB PO (08:28)
[2018-04-12] MEDS: FINASTERIDE 5 MG TAB PO (08:28)
[2018-04-12] MEDS: FERROUS SULFATE (EC) 325 MG TAB PO ×2 (08:29→20:24)
[2018-04-12] MEDS: ENOXAPARIN 40 MG/0.4 ML SYG SC (08:33)
[2018-04-12 08:40] LABS: HEMOGLOBIN A1C 7.2 % (0-5.9)
[2018-04-12] MEDS: INSULIN ASPART [NOVOLOG] 3 ML PEN SC ×7 (08:44→21:00)
[2018-04-12] MEDS: VANCOMYCIN 1.5 GM in SOD CHLORIDE 0.9% 250 ML IVPB ×2 (13:24→15:31)
[2018-04-12] MEDS: morphine LIQ (10 MG/5 ML) CUP PO (17:02)
[2018-04-12 18:42] LABS: ERYTHROCYTE SEDIMENTATION RATE 87 mm/Hr (0-20)
[2018-04-12] MEDS: TAMSULOSIN (SR) 0.4 MG CAP PO (20:24)
[2018-04-12] MEDS: ATORVASTATIN 10 MG TAB PO (20:24)
[2018-04-12] MEDS: INSULIN GLARGINE [LANtus] 3 ML PEN SC (21:00)
[2018-04-13] MEDS: ACCU-CHEK XX (02:00)
[2018-04-13] MEDS: morphine LIQ (10 MG/5 ML) CUP PO ×3 (02:20→20:39)
[2018-04-13] MEDS: PANTOPRAZOLE (EC) 40 MG TAB PO (05:29)
[2018-04-13 06:04] LABS: ADD MAN DIFF? NO
[2018-04-13 06:11] LABS: BASOPHIL # 0.1 10^3/ul (0.0-0.1); BASOPHILS % 0.8 % (0.0-2.0); EOSINOPHILS # 0.3 10^3/ul (0.0-0.5); EOSINOPHILS % 4.3 % (0.0-7.0); HEMATOCRIT 32.9 % (42.0-52.0); HEMOGLOBIN 10.9 g/dl (14.0-18.0); LYMPHOCYTES # 2.2 10^3/ul (0.8-2.9); LYMPHOCYTES % 28.1 % (15.0-51.0); MEAN CORPUSCULAR HEMOGLOBIN 29.9 pg (29.0-33.0); MEAN CORPUSCULAR HGB CONC 33.1 g/dl (32.0-37.0); MEAN CORPUSCULAR VOLUME 90.1 fl (82.0-101.0); MONOCYTE # 0.5 10^3/ul (0.3-0.9); NEUTROPHIL # 4.6 10^3/ul (1.6-7.5); NEUTROPHILS % 59.5 % (39.0-77.0); PLATELET COUNT 335 10^3/UL (140-415); RED BLOOD COUNT 3.65 10^6/ul (4.70-6.10); RED CELL DISTRIBUTION WIDTH 13.1 % (11.5-14.5)
[2018-04-13 06:11] LABS: WHITE BLOOD COUNT 7.7 10^3/ul (4.8-10.8)
[2018-04-13 06:55] LABS: ANION GAP 13 (8-16); BLOOD UREA NITROGEN 25 mg/dl (7-20); CALCIUM 9.1 mg/dl (8.4-10.2); CARBON DIOXIDE 29 mmol/L (21-31); CHLORIDE 107 mmol/L (97-110); CREATININE 1.33 mg/dl (0.61-1.24); GLUCOSE 121 mg/dl (70-220); POTASSIUM 4.7 mmol/L (3.5-5.1); SODIUM 144 mmol/L (135-144)
[2018-04-13] MEDS: INSULIN ASPART [NOVOLOG] 3 ML PEN SC ×7 (08:06→20:49)
[2018-04-13] MEDS: ONDANSETRON 4 MG INJ IV (08:26)
[2018-04-13] MEDS: GEMFIBROZIL 600 MG TAB PO ×2 (08:45→20:41)
[2018-04-13] MEDS: ASPIRIN (EC) 81 MG TAB PO (08:45)
[2018-04-13] MEDS: FINASTERIDE 5 MG TAB PO (08:45)
[2018-04-13] MEDS: METOPROLOL 25 MG TAB PO ×2 (08:46→20:41)
[2018-04-13] MEDS: FERROUS SULFATE (EC) 325 MG TAB PO ×2 (08:46→20:41)
[2018-04-13] MEDS: LOSARTAN 50 MG TAB PO (08:46)
[2018-04-13] MEDS: ENOXAPARIN 40 MG/0.4 ML SYG SC (08:47)
[2018-04-13] MEDS: VANCOMYCIN 1.5 GM in SOD CHLORIDE 0.9% 250 ML IVPB (14:42)
[2018-04-13] MEDS: ATORVASTATIN 10 MG TAB PO (20:41)
[2018-04-13] MEDS: TAMSULOSIN (SR) 0.4 MG CAP PO (20:41)
[2018-04-13] MEDS: INSULIN GLARGINE [LANtus] 3 ML PEN SC (20:52)
[2018-04-14] MEDS: ACCU-CHEK XX (01:49)
[2018-04-14] MEDS: PANTOPRAZOLE (EC) 40 MG TAB PO (05:58)
[2018-04-14] MEDS: INSULIN ASPART [NOVOLOG] 3 ML PEN SC ×6 (07:58→17:27)
[2018-04-14] MEDS: FERROUS SULFATE (EC) 325 MG TAB PO (08:06)
[2018-04-14] MEDS: LOSARTAN 50 MG TAB PO (08:06)
[2018-04-14] MEDS: GEMFIBROZIL 600 MG TAB PO (08:06)
[2018-04-14] MEDS: FINASTERIDE 5 MG TAB PO (08:06)
[2018-04-14] MEDS: ASPIRIN (EC) 81 MG TAB PO (08:06)
[2018-04-14] MEDS: METOPROLOL 25 MG TAB PO (08:07)
[2018-04-14] MEDS: ENOXAPARIN 40 MG/0.4 ML SYG SC (08:51)
[2018-04-14] MEDS: morphine LIQ (10 MG/5 ML) CUP PO (11:15)
[2018-04-14 14:35] LABS: VANCOMYCIN,TROUGH 11.6 ug/ml (10.0-20.0)
[2018-04-14] MEDS: VANCOMYCIN 1.5 GM in SOD CHLORIDE 0.9% 250 ML IVPB (15:12)
== END 2018-04-14 18:55 | disposition home health service (06) | DRG 603 ==
LOC: MS2 07:17
PROVIDERS: Internal Medicine
DX: L03.115 Cellulitis of right lower limb (principal); E11.42 Type 2 diabetes mellitus with diabetic polyneuropathy; I10 Essential (primary) hypertension; N40.0 Benign prostatic hyperplasia without lower urinary tract symptoms; K21.9 Gastro-esophageal reflux disease without esophagitis; H91.91 Unspecified hearing loss, right ear; E11.610 Type 2 diabetes mellitus with diabetic neuropathic arthropathy; Z79.82 Long term (current) use of aspirin; Z79.4 Long term (current) use of insulin
CPT/HCPCS: 73630; 73718; 80048; 80202; 82962; 83036; 83735; 84100; 85025; 85651; 93970; 97162

== ENCOUNTER 2019-03-29 09:47 | Emergency (ER) | payer OTHER ==
[2019-03-29] MEDS: CEFTRIAXONE 1 GM/50 ML (PMX) 50 ML IVPB (11:27)
[2019-03-29] MEDS: ALBUTEROL 0.083% (NEB) 2.5 MG/3 ML AMP INH (11:37)
[2019-03-29 13:10] LABS: ADD MAN DIFF? NO
[2019-03-29 13:12] LABS: WHITE BLOOD COUNT 12.1 10^3/ul (4.8-10.8)
[2019-03-29 13:12] LABS: BASOPHIL # 0.1 10^3/ul (0.0-0.1); BASOPHILS % 0.4 % (0.0-2.0); EOSINOPHILS # 0.2 10^3/ul (0.0-0.5); EOSINOPHILS % 1.6 % (0.0-7.0); HEMATOCRIT 34.6 % (42.0-52.0); HEMOGLOBIN 11.4 g/dl (14.0-18.0); LYMPHOCYTES # 1.9 10^3/ul (0.8-2.9); MEAN CORPUSCULAR HEMOGLOBIN 29.2 pg (29.0-33.0); MEAN CORPUSCULAR HGB CONC 32.9 g/dl (32.0-37.0); MEAN CORPUSCULAR VOLUME 88.7 fl (82.0-101.0); MEAN PLATELET VOLUME 8.4 fl (7.4-10.4); MONOCYTE # 0.9 10^3/ul (0.3-0.9); MONOCYTES % 7.4 % (0.0-11.0); NEUTROPHILS % 74.2 % (39.0-77.0); PLATELET COUNT 240 10^3/UL (140-415)
[2019-03-29 13:30] LABS: ANION GAP 8 (5-13); BLOOD UREA NITROGEN 26 mg/dl (7-20); CALCIUM 8.9 mg/dl (8.4-10.2); CARBON DIOXIDE 24 mmol/L (21-31); CHLORIDE 105 mmol/L (97-110); CREATININE 1.52 mg/dl (0.61-1.24); Estimated GFR 48 mL/min (>60); GLUCOSE 194 mg/dl (70-220); POTASSIUM 4.6 mmol/L (3.5-5.1); SODIUM 137 mmol/L (135-144)
[2019-03-29] MEDS: HYDROCODONE/APAP (5/325) TAB PO (14:34)
== END 2019-03-29 15:15 | disposition home or self-care (01) ==
LOC: E/R 09:47
DX: J40 Bronchitis, not specified as acute or chronic (principal); E11.9 Type 2 diabetes mellitus without complications; Z79.4 Long term (current) use of insulin
CPT/HCPCS: 36415; 71045; 80048; 85025; 94664; 96374; 99284-25